=== PATIENT | female | born 1980 | race Caucasian/White ===

== ENCOUNTER 2018-12-04 16:39 | Emergency (ER) | payer OTHER ==
[~2018-12-04] VITALS: Ht 162.6 cm; Wt 59.0 kg
[~2018-12-04 16:39] MED LIST: ACETAMINOPHEN-1 EAC1 PO; ACETAMINOPHEN325 M1 PO; ALBUTEROL INHAL17 GM; ASMANEX0.24 G1 IH; CIPROFLOXACIN500 M1 PO; CLARITIN10 MG; CLARITIN10 MG PO; DULERA 100 MCG/13 GM; FIORICET 50-321 EACH PO; IBUPROFEN 200200 M1; IBUPROFEN 600600 M1 PO; LESSINA1 EACH PO; NORCO 5-325 TA1 EACH PO; PHENERGAN 25 MG25 M1 PO; PREDNISONE50 MG PO; PROAIR HFA8.5 GM IH; PROVENTIL HFA6.7 G1 INH; SINGULAIR; TYLENOL COLD-F240 ML; ULTRAM 50MG TAB50 MG PO; VENTOLIN17 GM; VICODIN 5-5001 EACH PO; ZPAK PO
[2018-12-04] MEDS ORDERED: MOBIC15 MG PO (17:18)
[2018-12-04 17:38] VITALS: BP 115/76
== END 2018-12-04 17:38 | disposition home or self-care (01) ==
LOC: ER 16:39
DX: S90.01XA Contusion of right ankle, initial encounter (principal); G43.909 Migraine, unspecified, not intractable, without status migrainosus; J45.909 Unspecified asthma, uncomplicated; Z98.890 Other specified postprocedural states; Z88.8 Allergy status to other drugs, medicaments and biological substances; W25.XXXA Contact with sharp glass, initial encounter; Y93.89 Activity, other specified; Y92.89 Other specified places as the place of occurrence of the external cause; Y99.8 Other external cause status

== ENCOUNTER 2019-10-09 12:48 | Emergency (ER) | payer OTHER ==
[~2019-10-09] VITALS: Ht 160 cm; Wt 52.2 kg
[~2019-10-09 12:48] MED LIST changes: +MOBIC15 MG PO
[2019-10-09 13:07] LABS: URINE BILIRUBIN NEGATIVE (Negative); URINE BLOOD TRACE (Negative); URINE CLARITY CLEAR; URINE COLOR YELLOW; URINE GLUCOSE-RANDOM* NEGATIVE (Negative); URINE KETONES NEGATIVE (Negative); URINE LEUKOCYTES-REFLEX 2+ (Negative); URINE NITRITE-REFLEX NEGATIVE (Negative); URINE PROTEIN (DIPSTICK) NEGATIVE (Negative); URINE SPECIFIC GRAVITY <= 1.005 (1.005-1.035); URINE UROBILINOGEN 0.2 E.U./dl (0.2-1.0)
[2019-10-09] MEDS ORDERED: ZOLOFT25 MG PO (13:07)
[2019-10-09 13:30] LABS: ABSOLUTE NEUTROPHILS 7.3 thou/uL (1.4-8.2); BASOPHILS 0.5 % (0.0-2.0); EOSINOPHILS 0.7 % (0.0-3.0); HEMATOCRIT 36.6 % (37.0-47.0); HEMOGLOBIN 12.8 gm/dL (12.0-15.0); LYMPHOCYTES 16.6 % (24.0-44.0); MCHC 34.9 g/dL (28.0-37.0); MCV 100.1 fL (80.0-100.0); MONOCYTES 7.4 % (1.0-8.0); PLATELET COUNT 279 thou/uL (150-400); POLYS 74.8 % (36.0-66.0); RBC 3.66 mil/uL (4.20-5.00); RDW 12.1 % (10.5-14.5); WBC 9.8 thou/uL (4.0-11.0)
[2019-10-09 13:33] LABS: CALCIUM 9.1 mg/dL (8.5-10.1); CREATININE 0.6 mg/dL (0.6-1.0); POTASSIUM 3.4 mmol/L (3.5-5.1)
[2019-10-09 13:39] LABS: ALBUMIN 3.6 g/dL (3.4-5.0); TOTAL BILIRUBIN 0.9 mg/dL (0.2-1.0); TOTAL PROTEIN 7.5 g/dL (6.4-8.2)
[2019-10-09 14:01] LABS: CASTS None Seen /LPF (None Seen); CRYSTALS None Seen /LPF (None Seen); SQUAMOUS 4-10 Moderate /LPF (0-3); URINE RBC 0-2 Rare /HPF (0-2)
[2019-10-09 14:02] LABS: BACTERIA-REFLEX 1-9 Few /HPF (None Seen); URINE WBC-REFLEX 0-5 Rare /HPF (0-5)
[2019-10-09 15:50] VITALS: BP 98/67
[2019-10-09] MEDS ORDERED: ZOFRAN ODT4 MG PO (15:55)
[2019-10-09] MEDS ORDERED: NORCO 5-325 TA1 EAC1 PO (15:55)
[2019-10-09] MEDS ORDERED: CIPRO500 M1 PO (15:55)
[2019-10-09] MEDS ORDERED: FLAGYL500 M1 PO (15:55)
[2019-10-09] MEDS ORDERED: PROBIOTIC1 EAC7 PO (15:55)
== END 2019-10-09 15:50 | disposition home or self-care (01) ==
LOC: ER 12:48
PROVIDERS: Nurse Practitioner Family
DX: K62.89 Other specified diseases of anus and rectum (principal); R19.7 Diarrhea, unspecified; N39.0 Urinary tract infection, site not specified; R11.0 Nausea; G43.909 Migraine, unspecified, not intractable, without status migrainosus; J45.909 Unspecified asthma, uncomplicated; Z88.6 Allergy status to analgesic agent; Z79.899 Other long term (current) drug therapy; Z98.890 Other specified postprocedural states

== ENCOUNTER 2019-10-12 13:01 | Emergency (ER) | payer OTHER ==
[~2019-10-12] VITALS: Ht 160 cm; Wt 52.2 kg
[~2019-10-12 13:01] MED LIST changes: +CIPRO500 M1 PO; +FLAGYL500 M1 PO; +NORCO 5-325 TA1 EAC1 PO; +PROBIOTIC1 EAC7 PO; +ZOFRAN ODT4 MG PO; +ZOLOFT25 MG PO
[2019-10-12 13:47] LABS: URINE BILIRUBIN NEGATIVE (Negative); URINE BLOOD TRACE (Negative); URINE CLARITY CLEAR; URINE COLOR YELLOW; URINE GLUCOSE-RANDOM* NEGATIVE (Negative); URINE KETONES NEGATIVE (Negative); URINE LEUKOCYTES-REFLEX NEGATIVE (Negative); URINE NITRITE-REFLEX NEGATIVE (Negative); URINE PROTEIN (DIPSTICK) NEGATIVE (Negative); URINE SPECIFIC GRAVITY <= 1.005 (1.005-1.035); URINE UROBILINOGEN 0.2 E.U./dl (0.2-1.0)
[2019-10-12 14:08] LABS: ABSOLUTE NEUTROPHILS 5.6 thou/uL (1.4-8.2); BASOPHILS 0.4 % (0.0-2.0); EOSINOPHILS 2.3 % (0.0-3.0); HEMATOCRIT 36.8 % (37.0-47.0); HEMOGLOBIN 12.7 gm/dL (12.0-15.0); LYMPHOCYTES 12.6 % (24.0-44.0); MCHC 34.6 g/dL (28.0-37.0); MCV 101.4 fL (80.0-100.0); MONOCYTES 6.8 % (1.0-8.0); PLATELET COUNT 263 thou/uL (150-400); POLYS 77.9 % (36.0-66.0); RBC 3.63 mil/uL (4.20-5.00); RDW 12.4 % (10.5-14.5); WBC 7.2 thou/uL (4.0-11.0)
[2019-10-12 14:17] LABS: CALCIUM 8.6 mg/dL (8.5-10.1); CREATININE 0.8 mg/dL (0.6-1.0); POTASSIUM 3.4 mmol/L (3.5-5.1)
[2019-10-12 14:29] LABS: ALBUMIN 3.7 g/dL (3.4-5.0); TOTAL BILIRUBIN 0.4 mg/dL (0.2-1.0); TOTAL PROTEIN 7.7 g/dL (6.4-8.2)
[2019-10-12] MEDS ORDERED: TORADOL 10 MG T10 MG PO (17:31)
[2019-10-12] MEDS ORDERED: MIRALAX119 GM PO (17:31)
[2019-10-12] MEDS ORDERED: SENNA PLUS TAB1 EACH PO (17:31)
[2019-10-12 18:20] VITALS: BP 100/67
== END 2019-10-12 18:22 | disposition home or self-care (01) ==
LOC: ER 13:01
PROVIDERS: Physician Assistant
DX: K59.00 Constipation, unspecified (principal); N83.201 Unspecified ovarian cyst, right side; K62.89 Other specified diseases of anus and rectum; G43.909 Migraine, unspecified, not intractable, without status migrainosus; R30.9 Painful micturition, unspecified; M54.2 Cervicalgia; J45.909 Unspecified asthma, uncomplicated; J02.9 Acute pharyngitis, unspecified; Z90.49 Acquired absence of other specified parts of digestive tract; Z88.6 Allergy status to analgesic agent; Z98.890 Other specified postprocedural states; Z79.899 Other long term (current) drug therapy; Z79.2 Long term (current) use of antibiotics

== ENCOUNTER 2020-03-14 15:58 | Emergency (ER) | payer OTHER ==
[~2020-03-14] VITALS: Ht 160 cm; Wt 61.2 kg
[~2020-03-14 15:58] MED LIST changes: +MIRALAX119 GM PO; +SENNA PLUS TAB1 EACH PO; +TORADOL 10 MG T10 MG PO
[2020-03-14] MEDS ORDERED: ACCUNEB SO1.25 MG/1 INH (16:22)
[2020-03-14] MEDS ORDERED: TESSALON PERLE100 MG PO (19:21)
[2020-03-14 20:33] LABS: ABSOLUTE NEUTROPHILS 3.2 thou/uL (1.4-8.2); BASOPHILS 0.7 % (0.0-2.0); EOSINOPHILS 1.3 % (0.0-3.0); HEMATOCRIT 39.9 % (37.0-47.0); HEMOGLOBIN 13.7 gm/dL (12.0-15.0); LYMPHOCYTES 33.3 % (24.0-44.0); MCH 34.3 pg (26.0-34.0); MCHC 34.3 g/dL (28.0-37.0); MONOCYTES 9.4 % (1.0-8.0); PLATELET COUNT 341 thou/uL (150-400); POLYS 55.3 % (36.0-66.0); RBC 3.99 mil/uL (4.20-5.00); RDW 12.3 % (10.5-14.5); WBC 5.8 thou/uL (4.0-11.0)
[2020-03-14] MEDS ORDERED: ZPAK PO (20:47)
[2020-03-14 21:16] VITALS: BP 110/76
== END 2020-03-14 21:17 | disposition home or self-care (01) ==
LOC: ER 15:58
PROVIDERS: Nurse Practitioner
DX: J18.9 Pneumonia, unspecified organism (principal); G43.909 Migraine, unspecified, not intractable, without status migrainosus; J45.909 Unspecified asthma, uncomplicated; Z20.828 Contact with and (suspected) exposure to other viral communicable diseases; Z98.890 Other specified postprocedural states; Z90.49 Acquired absence of other specified parts of digestive tract; Z79.899 Other long term (current) drug therapy; Z88.6 Allergy status to analgesic agent

== ENCOUNTER 2020-06-12 23:29 | Emergency (ER) | payer OTHER ==
[~2020-06-12] VITALS: Ht 160 cm; Wt 63.5 kg
[~2020-06-12 23:29] MED LIST changes: +ACCUNEB SO1.25 MG/1 INH; +TESSALON PERLE100 MG PO
[2020-06-13] MEDS ORDERED: TYLENOL325 M1 PO (00:42)
[2020-06-13] MEDS ORDERED: COMPAZINE10 M2 PO (00:42)
[2020-06-13 00:48] VITALS: BP 97/61
== END 2020-06-13 00:49 | disposition home or self-care (01) ==
LOC: ER 23:29
DX: G43.909 Migraine, unspecified, not intractable, without status migrainosus (principal); J45.909 Unspecified asthma, uncomplicated; Z90.49 Acquired absence of other specified parts of digestive tract; Z79.899 Other long term (current) drug therapy; Z88.6 Allergy status to analgesic agent